=== PATIENT | female | born 1955 | race Caucasian/White ===

== ENCOUNTER 2022-01-28 10:46 | Day surgery (SDC) | payer OTHER ==
[2022-01-17 15:27] LABS: Urine Appearance CLEAR (Clear); Urine Bilirubin NEGATIVE (Negative); Urine Blood NEGATIVE (Negative); Urine Color YELLOW (Yellow); Urine Glucose NEGATIVE (Negative); Urine Protein NEGATIVE (Negative); Urine Specific Gravity 1.015 (1.005-1.030); Urine Urobilinogen 0.2 mg/dL (0.2-1.0); Urine pH 7.5 (5.0-7.0)
[2022-01-17 15:30] LABS: SARS-CoV-2 Antigen Rapid Res Negative (Negative)
[2022-01-17 15:57] LABS: Protime INR 1.05
[2022-01-17 15:59] LABS: Absolute Lymphocytes (CBC) 1.5 K/uL (0.7-4.9); Hematocrit 42.1 % (36.0-45.0); Lymphocytes % 24.7 % (15.3-44.8); MCV 94.3 fL (80-100); MPV 10.5 fL (7.6-11.3); RBC Red Blood Cell Count 4.47 M/uL (3.86-4.86)
[2022-01-17 16:04] LABS: Potassium 3.5 mmol/L (3.5-5.1)
[2022-01-28] MEDS ORDERED: CEFAZOLIN 2 GM IN 0.9% NACL 2 GM/100 ML BAG ONE (11:15)
[2022-01-28] MEDS: Ringers Lactate 1,000 ML IV ONE ×2 (11:30→13:18)
[2022-01-28 11:58] LABS: SARS-CoV-2 Antigen Rapid Res Negative (Negative)
[2022-01-28] MEDS ORDERED: NS 0.9% VIAL 10 ML ONE (12:42)
[2022-01-28] MEDS ORDERED: NA CHLORIDE 0.9% 50 ML ONE (12:43)
[2022-01-28] MEDS ORDERED: CEFAZOLIN SODIUM 1 GM/VIAL ONE (12:43)
[2022-01-28] MEDS ORDERED: VASOPRESSIN 20 UNIT/ML VIAL ONE (12:43)
[2022-01-28] MEDS ORDERED: NA CHLORIDE 0.9% 1,000 ML ONE (13:01)
[2022-01-28] MEDS ORDERED: propofoL 200 MG/20 ML VIAL IV ONE (13:14)
[2022-01-28] MEDS ORDERED: FENTANYL CITR 100 MCG/2 ML ONE (13:14)
[2022-01-28] MEDS ORDERED: MIDAZOLAM HCL 2 MG/2 ML INJ ONE (13:14)
[2022-01-28] MEDS ORDERED: LIDOCAINE 2% MPF 5 ML VIAL ONE (13:15)
[2022-01-28] MEDS ORDERED: ONDANSETRON 4 MG/2 ML VIAL ONE (13:15)
[2022-01-28] MEDS ORDERED: dexAMETHasone 10 MG/ML VIAL ONE (14:14)
[2022-01-28] MEDS ORDERED: GLYCOPYRROLATE 0.2 MG/ML SYR ONE (14:43)
[2022-01-28] MEDS ORDERED: KETOROLAC 30 MG/ML INJ ONE (15:05)
[2022-01-28 15:34] VITALS: TEMP 97.6
[2022-01-28 17:15] VITALS: BP 112/67; O2SAT 95
--- NOTE | 2022-01-29 02:46 | OP ---
Date of Procedure: 01/28/2022 Surgeon: Delilah Moon MD [employer]: Alanna Robertson Preoperative Diagnosis: Stress urinary incontinence. Postoperative Diagnosis: Stress urinary incontinence. Procedures Performed: Midurethral sling (tension-free vaginal tape through obturator approach TVT-O) , cystoscopy. Estimated Blood Loss: Minimal. Specimens: No specimens. Complications: None. Drains: Dawson catheter. Patient's Condition: Stable. Procedure In Detail: The patient is a 66-year-old, consented for midurethral sling. She has allergi es to penicillin, no noted allergies to cephalosporins. 2 g of Ancef was given. The patient was re- consented and taken back to the OR, placed in the supine fashion on the operating table and general a nesthesia was given with LMA. The patient was placed in dorsal lithotomy position using Pedro Pablo stirru ps. Lower abdomen, vulva, vagina, medial thighs were all prepped and draped in a sterile fashion. F oley was placed to drain the bladder and clamped with a Kristy and retracted superiorly. Midurethral area was exposed with a vaginal speculum. Two Allis clamps were placed on either sides of the urethr a in the midurethral area. The dilute vasopressin was injected in the midline and to the sides, abou t 18 cc was injected. Then, 1 cm midline incision was made with the help of a 15 blade. Dissection was carried by creating 2 flaps, tunneling to the ipsilateral obturator space. After the obturator m embrane was perforated, the tips of the scissors were opened up to expand the tunnel first on the lef t side, then on the right side. Slight difficulty and scarring on the right side; however, it went s moothly without any perforation of the vaginal epithelium into the vaginal canal. TVT-O kit was opened, wing guide was taken, and this was placed through the tunnels that were created . The spike was passed with the plastic dilator sheath at a 45-degree angle to the horizontal and verti sabina planes hugging the inferior pubic ramus. Once the guide was removed, this was exited out through the medial thigh incision about 2 cm lateral to the groin fold and 2 cm above the level of the horiz ontal line dropped at the level of the external meatus, avoiding the adductor longus tendon. Once th e plastic dilator and the spike were held with a Kristy, the spike was removed, the dilator was pulled out, and the sheath and the graft were clamped with a Kristy and the dilator was cut. Similar pass w as taken on the right side, slightly more difficult to define the space again, but once this was done , the spike passed without any problems. Mesh and the plastic sheaths were held with a Kristy. Then in the center, tensioning of the sling was performed with the help of an Allis clamp, keeping at leas t half a centimeter of the mesh within the clamp and this was tensioned right underneath the urethra. Both the plastic sheaths were pulled out. Then, the Allis was opened up to release the sling. The re was an excellent positioning of the sling in terms of tension as well as it was flat. Then, antib iotic irrigation was done with Ancef. The mesh trimmed at the medial thighs, flushed with the skin. The skin was closed with the help of Dermabond. Then, I re-examined the tensioning of the sling, wh ich was optimal after checking with the help of Metzenbaum scissors. Then closed the incision with a simple 3-0 Vicryl stitch on the top and then continuous running horizontal mattress 3-0 Vicryl sutur e the rest of the incision without any exposure of the mesh. Dawson was removed. Cystoscopy was performed with 30-degree lens, normal saline, and a 17-Maori ramsey th. The base of the bladder, trigone, both ureteric orifices, lateral surfaces of the dome were all carefully visualized. No evidence of any foreign body or mesh in the bladder. No tumor. Bladder wa s drained. Dawson was replaced. The patient was recovered from anesthesia and taken to PACU in stabl e condition. She will have a voiding trial in an hour and will be discharged home depending on its res ults. MENDEZ/CHEKO Voice ID: [id number] Report ID: [id number]
== END 2022-01-28 17:10 | disposition home or self-care (01) ==
LOC: OR 10:46
PROVIDERS: ATTEND Obstetrics & Gynecology
PROC: 0TSD0ZZ Reposition Urethra, Open Approach (ICD-10-PCS; principal; 2022-01-28 12:30)
DX: N39.3 Stress incontinence (female) (male) (principal); R39.15 Urgency of urination; N95.2 Postmenopausal atrophic vaginitis; I10 Essential (primary) hypertension; Z20.822 Contact with and (suspected) exposure to COVID-19
CPT/HCPCS: 85025; 80048; 36415 ×2; 86900 ×2; 86850 ×2; 85610; 86901 ×2; 85730; 81003; 87811 ×2; 57288; J2704; J2250; J3010; J1100; J0690 ×2; J7120; J7030; J2405